=== PATIENT | female | born 1960 | race American Indian/Alaskan Native ===

== ENCOUNTER 2017-12-02 15:02 | Inpatient (IN) | payer MEDICARE, OTHER ==
--- NOTE | 2017-12-02 15:43 | ED PDOC ---
Arrival/HPI - General Chief Complaint: Chest Pain Time Seen by Provider: 12/02/17 15:20 Historian: Patient - History of Present Illness Narrative History of Present Illness (Text): 12/02/17 15:41 Patient is a 57-year-old female with past medical history of high cholesterol and 3 cardiac stents in the past, 2 in 2010 and 1 in 2012, is complaining of intermittent pressure like pain to the center of her chest that occurs mostly during rest and would last several hours to a whole day, associated with shortness of breath with exertion. Patient states that her symptoms have been ongoing for the past week. States that she saw her PMD today Dr. Cevallos who recommended that she come to the hospital to be admitted overnight. Patient admits to a cough as well. Otherwise: (-) chest pain currently, (-) radiation, ( -) diaphoresis, (-) dyspnea, (-) pleuritic component, (-) ripping or tearing quality, (-) positional component, (-) dizziness, (-) syncope, (+) nausea, (-) vomiting, (-) calf swelling/pain, (-) neuro deficits, (-) recent travel/ hospitalizations/surgeries. PMD Mattie Garcia Past Medical History - Infectious Disease Hx of Infectious Diseases: None - Reproductive Menopause: Yes - Cardiac Hx Hypertension: Yes - Pulmonary Hx Asthma: Yes Hx Chronic Obstructive Pulmonary Disease (COPD): Yes - Neurological Hx Paralysis: No - Endocrine/Metabolic Hx Systemic Lupus Erythematosus: Yes - Hematological/Oncological Hx Blood Transfusions: No Hx Blood Transfusion Reaction: No - Musculoskeletal/Rheumatological Hx Musculoskeletal Disorders: Yes (RA;LUPUS; HERNIATED DISCS) - Psychiatric Hx Emotional Abuse: No Hx Physical Abuse: No Hx Substance Use: No - Surgical History Hx Coronary Stent: Yes (2) Hx Hysterectomy: Yes (PARTIAL) - Anesthesia Hx Anesthesia: Yes Hx Anesthesia Reactions: No Hx Malignant Hyperthermia: No - Suicidal Assessment Feels Threatened In Home Enviroment: No Family/Social History Family/Social History: Unknown Family HX Smoking Status: Current Some Days Smoker Hx Alcohol Use: Yes (socially) Frequency of alcohol use: Socially Hx Substance Use: No Allergies/Home Meds Allergies/Adverse Reactions: Allergies amoxicillin Allergy (Intermediate, Verified 12/02/17 15:13) RASH/ITCHING [place] And Derivatives Allergy (Verified 12/02/17 15:13) RASH strawberry Allergy (Verified 12/02/17 15:13) RASH Home Medications: Home Meds Medication Instructions Recorded Confirmed Aspirin [Ecotrin] 81 mg PO QPM 05/22/15 12/02/17 Clopidogrel [Plavix] 75 mg PO QAM 05/22/15 12/02/17 Simvastatin 20 mg PO HS 05/22/15 12/02/17 Albuterol Sulfate [Ventolin Hfa] 2 puff NEB Q6 PRN 12/02/17 12/02/17 Biotin [Biotin] 5,000 mcg PO DAILY 12/02/17 12/02/17 Cholecalciferol [Vitamin D 1000 IU] 1,000 iu PO DAILY 12/02/17 12/02/17 Enalapril Maleate [Vasotec] 20 mg PO DAILY 12/02/17 12/02/17 Hydroxychloroquine Sulfate 200 mg PO DAILY 12/02/17 12/02/17 [Hydroxychloroquine Sulfate] Montelukast [Singulair] 10 mg PO DAILY 12/02/17 12/02/17 Propylene Glycol [Systane Balance] 1 drop OU DAILY 12/02/17 12/02/17 Review of Systems - Review of Systems Constitutional: absent: Fatigue, Weight Change, Fevers Respiratory: SOB (with exertion), Cough. absent: Sputum Cardiovascular: Chest Pain. absent: Palpitations Gastrointestinal: Nausea. absent: Abdominal Pain, Vomiting Musculoskeletal: Back Pain. absent: Arthralgias, Neck Pain Skin: absent: Rash, Pruritis, Skin Lesions Neurological: absent: Headache, Dizziness Physical Exam Vital Signs Temp Pulse Resp BP Pulse Ox 12/02/17 16:20 98 F 75 19 140/70 99 12/02/17 15:10 97.8 F 81 18 128/64 99 Temperature: Afebrile Blood Pressure: Normal Pulse: Regular Respiratory Rate: Normal Appearance: Positive for: Well-Appearing, Non-Toxic, Comfortable Pain Distress: None Mental Status: Positive for: Alert and Oriented X 3 - Systems Exam Head: Present: Atraumatic, Normocephalic Conjunctiva: Present: Normal Mouth: Present: Moist Mucous Membranes Neck: Present: Normal Range of Motion. No: MIDLINE TENDERNESS Respiratory/Chest: Present: Clear to Auscultation, Good Air Exchange. No: Respiratory Distress, Accessory Muscle Use Cardiovascular: Present: Regular Rate and Rhythm, Normal S1, S2. No: Murmurs Abdomen: No: Tenderness, Distention, Peritoneal Signs Back: Present: Normal Inspection Upper Extremity: Present: Normal Inspection, NORMAL PULSES, Neurovascularly Intact. No: Cyanosis, Edema, Temperature Abnormalties Lower Extremity: Present: Normal Inspection, NORMAL PULSES, Neurovascularly Intact. No: Edema, Tenderness, Swelling, Temperature Abnormalties Neurological: Present: GCS=15, CN II-XII Intact, Speech Normal, Motor Func Grossly Intact, Normal Sensory Function Skin: Present: Warm, Dry, Normal Color. No: Rashes Psychiatric: Present: Alert, Oriented x 3, Normal Insight, Normal Concentration Medical Decision Making ED Course and Treatment: 12/02/17 15:38 Previous medical records reviewed : Echocardiogram performed by Dr. Garcia on 10/07/2016 showed mild LVH with good LV function, aortic valve sclerosis without stenosis, mild tricupsid regurgitation , mildly elevated pulmonary pressures. Stress test performed on 10/07/2016 : 1. Normal SPECT myocardial perfusion study 2. Normal gated wall motion of the L ventricle 3. In comparison with the last study anil 10/10/14, there is resolution of previously noted defects. Plan: -- Labs -- IV -- monitoring and evaluation advisor -- EKG -- CXR -- Asa -- Reassess and disposition EKG: NSR at 83 bpm, (-) acute ST changes, as read by [facility]. CXR : NAD, as read by FAREED 16:20 Labs reviewed : trop (-), rest of the labs wnl. On reevaluation, patient reports no chest pain or SOB at this time. On exam, patient remains awake alert and oriented 3 in no acute distress. Diagnostic results d/w the patient. She agrees with plan for further tele obs. VSS. 16:40 Case d/w Dr. Phelps agrees with plan for inpatient obs for tele. Bridge orders placed with consults to Dr. Garcia and Dr. Kulkarni as per request of Dr. Phelps. - Lab Interpretations Lab Results: 12/02/17 15:25 12/02/17 15:25 Lab Results 12/02/17 15:25: Sodium 141, Potassium 4.1, Chloride 108 H, Carbon Dioxide 22, Anion Gap 14, BUN 15, Creatinine 0.9, Est GFR ( Amer) > 60, Est GFR (Non- Af Amer) > 60, Random Glucose 103, Calcium 9.5, Magnesium 2.0, Total Bilirubin 0.4, AST 25, ALT 21, Alkaline Phosphatase 88, Lactate Dehydrogenase 406, Total Creatine Kinase 139, Troponin I < 0.01, Total Protein 7.6, Albumin 4.2, Globulin 3.4, Albumin/Globulin Ratio 1.2 12/02/17 15:25: PT 12.3, INR 1.08, APTT 30.0 12/02/17 15:25: WBC 8.9 D, RBC 4.68, Hgb 13.4, Hct 38.9, MCV 83.1, MCH 28.6, MCHC 34.4, RDW 14.4, Plt Count 282, MPV 9.6, Gran % 61.2, Lymph % (Auto) 29.7, [place] % (Auto) 7.0 H, Eos % (Auto) 2.0, Baso % (Auto) 0.1, Gran # 5.43, Lymph # ( Auto) 2.6, [place] # (Auto) 0.6, Eos # (Auto) 0.2, Baso # (Auto) 0.01 - RAD Interpretation Radiology Orders: 12/02/17 15:21 CHEST PORTABLE [RAD] Stat - Medication Orders Current Medication Orders: Discontinued Medications Aspirin (Aspirin Chewable) 324 mg PO STAT STA Stop: 12/02/17 15:37 Last Admin: 12/02/17 16:15 Dose: 324 mg - 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 Disposition/Present on Arrival - Present on Arrival Any Indicators Present on Arrival: No History of DVT/PE: No History of Uncontrolled Diabetes: No Urinary Catheter: No History of Decub. Ulcer: No History Surgical Site Infection Following: None - Disposition Have Diagnosis and Disposition been Completed?: Yes Diagnosis: Chest pain Disposition: HOSPITALIZED Disposition Time: 16:40 Patient Plan: Observation Condition: STABLE Discharge Instructions (ExitCare): Chest Pain (ED) Forms: [employer] ([place]an)
--- NOTE | 2017-12-02 15:46 | RAD ---
HISTORY: chest pain COMPARISON: Chest x-ray performed 08/20/15 TECHNIQUE: Chest, one view. FINDINGS: Examination limited by habitus. LUNGS: No focal consolidation. Please note that chest x-ray has limited sensitivity for the detection of pulmonary masses. PLEURA: No significant pleural effusion identified. No definite pneumothorax . CARDIOVASCULAR: The cardiomediastinal silhouette appears within normal limits of size. OSSEOUS STRUCTURES: No acute osseous abnormality identified. VISUALIZED UPPER ABDOMEN: Unremarkable. OTHER FINDINGS: None. IMPRESSION: No focal consolidation, significant pleural effusion, or definite pneumothorax identified.
[2017-12-02 16:11] LABS: BASO # 0.01 K/mm3 (0.0-2.0); BASO % 0.1 % (0.0-3.0); EOS # 0.2 (0.0-0.7); GRAN # 5.43 (1.4-6.5); GRAN % 61.2 % (50.0-68.0); HEMOGLOBIN 13.4 g/dL (12.0-16.0); LYMPH # 2.6 (1.2-3.4); LYMPH % 29.7 % (22.0-35.0); MEAN CELL VOLUME 83.1 fl (80.0-105.0); MEAN CORPUSCULAR HEMOGLOBIN 28.6 pg (25.0-35.0); MEAN CORPUSCULAR HGB CONC 34.4 g/dl (31.0-37.0); MEAN PLATELET VOLUME 9.6 fl (7.0-11.0); MONO # 0.6 (0.1-0.6); RBC 4.68 10^6/uL (3.5-6.1); RED CELL DISTRIBUTION WIDTH 14.4 % (11.5-14.5); WHITE BLOOD COUNT 8.9 10^3/ul (4.5-11.0)
[2017-12-02 16:14] LABS: INR 1.08; PROTHROMBIN TIME 12.3 SECONDS (9.4-12.5)
[2017-12-02 16:15] LABS: ALB/GLOB RATIO 1.2 (1.1-1.8); ALBUMIN 4.2 g/dL (3.0-4.8); ALT/SGPT 21 U/L (7-56); AST/SGOT 25 U/L (14-36); BLOOD UREA NITROGEN 15 mg/dL (7-21); CALCIUM 9.5 mg/dL (8.4-10.5); GFR NON-AFRICAN AMERICAN > 60
[2017-12-02 16:26] LABS: TROPONIN I < 0.01 ng/mL
[2017-12-02 19:13] VITALS: BMI 35.2
[2017-12-02] MEDS: diltiaZEM 180 mg/24 Hours CD Cap PO SCH (22:00)
[2017-12-02 22:09] LABS: HDL CHOLESTEROL 52 mg/dL (29-60); IRON 52 ug/dL (45-180)
[2017-12-02 22:18] LABS: % IRON SATURATION 17 % (20-55); TOTAL IRON BINDING CAPACITY 310 ug/dL (265-497)
[2017-12-02 22:20] LABS: LDL CHOLESTEROL 58 mg/dL (0-129)
[2017-12-02 22:21] LABS: TROPONIN I < 0.01 ng/mL
[2017-12-03] MEDS ORDERED: Albuterol-Ipratrop 3 mg / 0.5 (3 ml) UD IH SCH (02:00)
[2017-12-03 07:17] LABS: HEMOGLOBIN 13.3 g/dL (12.0-16.0); MEAN CELL VOLUME 83.6 fl (80.0-105.0); MEAN CORPUSCULAR HGB CONC 33.5 g/dl (31.0-37.0); MEAN PLATELET VOLUME 9.9 fl (7.0-11.0); RBC 4.75 10^6/uL (3.5-6.1); RED CELL DISTRIBUTION WIDTH 14.4 % (11.5-14.5); WHITE BLOOD COUNT 7.7 10^3/ul (4.5-11.0)
[2017-12-03 07:20] LABS: PH,URINE 5.5 (4.7-8.0); URINE BILIRUBIN NEGATIVE (NEGATIVE); URINE BLOOD NEGATIVE (NEGATIVE); URINE GLUCOSE (UA) NEGATIVE (NEGATIVE); URINE LEUKOCYTE ESTERASE NEGATIVE Leu/uL (NEGATIVE); URINE PROTEIN NEGATIVE mg/dL (<30 mg/dL); URINE UROBILINOGEN 0.2 E.U./dL (<1 E.U./dL)
[2017-12-03 07:23] LABS: URINE APPEARANCE CLEAR (CLEAR); URINE COLOR YELLOW (YELLOW)
[2017-12-03 07:24] LABS: BLOOD UREA NITROGEN 12 mg/dL (7-21); CALCIUM 9.5 mg/dL (8.4-10.5); GFR NON-AFRICAN AMERICAN > 60
[2017-12-03] MEDS ORDERED: Levalbuterol 0.63 MG/3 ML Inhal Soln UD IH PRN (08:32)
[2017-12-03] MEDS ORDERED: diltiaZEM 180 mg/24 Hours CD Cap PO SCH (10:00)
[2017-12-03] MEDS: MethylPREDNISolone 40 mg Vial IVP SCH ×2 (14:42→21:14)
[2017-12-03 17:02] LABS: BARBITURATES, UR NEGATIVE (NEGATIVE); BENZODIAZEPINES, UR NEGATIVE (NEGATIVE); OPIATES, UR NEGATIVE (NEGATIVE); PHENCYCLIDINE, UR NEGATIVE (NEGATIVE)
[2017-12-03] MEDS: diltiaZEM 180 mg/24 Hours CD Cap PO SCH (21:10)
--- NOTE | 2017-12-03 23:53 | CON ---
Copied To: Roosevelt Plata MD Attending MD: Roosevelt Plata MD DATE: 12/03/2017 CARDIOLOGY CONSULT REASON FOR CONSULTATION: Chest pain. HISTORY OF PRESENT ILLNESS: The patient is a 57-year-old female who has a history of hypertension, hyperlipidemia, coronary artery disease, status post coronary stenting 3 times in the past, presented because of dull and heavy retrosternal chest pain radiating to the entire scapular area in the back. The patient denies any associated diaphoresis. At the time of my patient's evaluation, the patient was chest pain free. The patient's most recent cardiac catheterization was in 08/2015, which revealed a single vessel CAD with patent stent in the mid LAD and normal ejection fraction. Due to diffuse atherosclerosis and likely vasomotor instability, beta blockers were discontinued and the patient was placed on Cardizem. SOCIAL HISTORY: The patient is a former smoker who quit a few months ago. MEDICATIONS: Cardizem CD 180 mg once a day, aspirin 81 mg once a day, Lipitor 10 mg once a day, Pepcid 40 mg once a day, Plaquenil 200 mg daily, Plavix 75 mg once a day, Solu-Medrol 40 mg intravenously every 8 hours, Xopenex inhaler every 6 hours p.r.n., Zestril 20 mg once a day. REVIEW OF SYSTEMS: No fever or chills. No diaphoresis. No dizziness or syncope. PHYSICAL EXAMINATION: GENERAL: The patient is an elderly female who does not appear to be in any distress. VITAL SIGNS: Blood pressure 106/58, heart rate is 76, temperature 98.5, respirations 20. HEENT: Normocephalic. CHEST: Minimal rhonchi. HEART: S1, S2 regular. ABDOMEN: Soft. EXTREMITIES: No edema. LABORATORY DATA: Today's CBC is entirely within normal limit. Today's SMA-7 is within normal limits except for chloride of 109. Lipid profile is within normal limits. Two sets of troponins are negative. PT/PTT, INR are within normal limits. Yesterday's EKG revealed normal sinus rhythm. ASSESSMENT: 1. Chest pain, myocardial infarction is ruled out. 2. History of coronary stenting. The most recent cardiac catheterization in 2015 revealed patent left anterior descending artery stent with small vessel disease and was placed on Cardizem therapy at that time. 3. Chronic obstructive lung disease. RECOMMENDATIONS: Continue Cardizem CD at 180 mg once a day, aspirin 81 mg once a day, Lipitor 10 mg once a day, Plaquenil 200 daily, Plavix 75 mg once a day, Solu-Medrol 40 mg intravenously every 8 hours and Zestril 20 mg once a day. The patient's most recent echocardiographic study from 10/2016 revealed mild LVH with good systolic function, aortic valve sclerosis without stenosis with mildly elevated pulmonary hypertension. Obtain serum D-dimer as well as urine toxicology screen. From the Chest x-ray, there is no evidence suggestive of aortic aneurysm and the clinical scenario does not favor aortic dissection in view of the patient's reported radiation of chest pain to the back. If the D-dimer is elevated, I will proceed with chest CT angio. Roosevelt Plata MD
--- NOTE | 2017-12-04 01:32 | CON ---
Copied To: Kevin Kulkarni MD Attending MD: Kevin Kulkarni MD DATE: 12/03/2017 PULMONARY CONSULT REFERRING PHYSICIAN: Vijaya Cevallos MD. REASON FOR CONSULT: Cough, shortness of breath, history of chronic obstructive lung disease, sleep apnea syndrome. HISTORY OF PRESENT ILLNESS: This is a 57-year-old female with known history of chronic obstructive lung disease, obstructive sleep apnea syndrome, hyperlipidemia, coronary artery disease, history of coronary stent, comes in with intermittent chest pain, shortness of breath, some cough. She is active smoker. Denies any nausea. No vomiting. No diarrhea. No leg pain or leg swelling. PAST MEDICAL HISTORY: Chronic obstructive lung disease, obstructive sleep apnea syndrome, coronary artery disease, history of coronary stent, hyperlipidemia, hypertension, also carried diagnosis of connective tissue disease, rheumatoid arthritis, also lupus, history of herniated disk. FAMILY HISTORY: No significant cardiopulmonary disease reported. SOCIAL HISTORY: Current smoker. Denies any alcohol use. ALLERGIES: TO AMOXICILLIN, DEVELOPED RASH; CITRUS FRUIT; . MEDICATIONS: She is on combination inhaler twice a day, Biotin 5000 mcg daily, Cardizem 180 mg daily, Ecotrin 81 mg daily, Lipitor 10 mg daily, Pepcid 40 mg at bedtime, Plaquenil 200 mg daily, Plavix 75 mg daily, Solu-Medrol 40 mg every 8 hours, Xopenex inhaled every 6 hours p.r.n., Zestril 20 mg daily. REVIEW OF SYSTEMS: No headache. No rhinitis. Admits to have loud snoring, daytime sleepy and tired. On and off mild chest discomfort, short of breath with exertion. No nausea, vomiting, diarrhea, leg pain, leg swelling. PHYSICAL EXAMINATION: GENERAL: Sitting up in a chair. No acute distress. VITAL SIGNS: Temp is 98, heart rate 64, respiratory rate is 20, blood pressure 118/68, pulse ox 96% on room air. HEENT: Moist mucous membrane. Crowded airway. Mallampati score is 4. NECK: Supple. No JVD. LUNGS: Have bilateral mid lung field some crackles. HEART: S1 and S2. ABDOMEN: Soft, nontender. No organomegaly. EXTREMITIES: There is no edema. NEUROLOGICAL: Awake, alert. Follows simple commands. LABORATORY DATA: Shows hemoglobin 13.3, hematocrit 39.7, WBC 7.7, platelet count is 278. INR 1.08, PTT 30. D-dimer less than 200. Sodium 143, potassium 4.3, chloride 109, bicarbonate 25, BUN 12, creatinine 0.8, glucose 100, calcium is 9.5. TSH 3.01. Cholesterol 143. Had echocardiogram done last year, which showed right ventricular systolic pressure is 35, mild LVH with good LV function. IMPRESSION AND PLAN: Chronic obstructive lung disease, coronary artery disease, history of coronary stent, mild diastolic dysfunction, hypertension, hyperlipidemia, coronary artery disease, history of coronary stent, has a lupus. Agree with the present treatment. Continue steroids. May add Zithromax 500 mg daily, gastric prophylaxis. Continue hydroxychloroquine for now. We will get CT of the chest to rule out interstitial lung disease. We will suggest getting PFT as outpatient to assess the effusion. Cardiology followup. Continue CPAP while sleeping. Thank you and we will follow with you. Kevni Kulkarni MD
[2017-12-04] MEDS: MethylPREDNISolone 40 mg Vial IVP SCH ×3 (05:15→21:46)
--- NOTE | 2017-12-04 05:36 | CARD ---
APPROVED REPORT Date of service: 12/02/2017 EKG Measurement Heart [id number] <Conclusion> Normal sinus rhythm Normal ECG
[2017-12-04] MEDS: BIOTIN 5000 MCG PO SCH (10:06)
--- NOTE | 2017-12-04 15:12 | PN ---
Copied To: Roosevelt Plata MD Attending MD: Roosevelt Plata MD DATE: 12/04/2017 SUBJECTIVE: The patient denies any chest pain or back pain. PHYSICAL EXAMINATION: VITAL SIGNS: Blood pressure 114/69; heart rate 70; temperature 98.7, earlier temperature was 99.9; respirations 18. HEENT: Normocephalic. CHEST: Clear. HEART: S1, S2 regular. EXTREMITIES: No edema. DATA: The D-dimer and urine drug screen were negative. Chest CT scan was performed; however, the report is still pending. ASSESSMENT: 1. Chest pain, myocardial infarction is ruled out. 2. History of coronary artery disease with history of coronary artery stenting in the past. Most recent cardiac catheterization in 2015 with a patent left anterior descending stent with a small vessel disease. 3. Chronic obstructive lung disease. RECOMMENDATIONS: Continue Cardizem CD at 180 mg once a day, aspirin 81 mg once a day, Lipitor 10 mg once a day, Plavix 75 mg once day, Solu-Medrol 40 mg intravenous every 8 hours, Zestril 20 mg once a day. I will follow chest CT scan report. From the cardiac point of view, the patient can be discharged and will follow up with Dr. Stewart Garcia as an outpatient. Roosevelt Plata MD
--- NOTE | 2017-12-04 18:55 | PN ---
Copied To: Kevin Kulkarni MD Attending MD: Kevin Kulkarni MD DATE: 12/04/2017 PULMONARY PROGRESS NOTE REFERRING PHYSICIAN: Vijaya Cevallos MD SUBJECTIVE: The patient is sitting side of the bed. Night was unremarkable. Feels better. No chest pain. No nausea. No diarrhea. No leg pain or leg swelling. PHYSICAL EXAMINATION: GENERAL: In no acute distress. VITAL SIGNS: Temperature is 98, heart rate is 73, respiratory rate is 18, blood pressure 115/76, pulse ox of 95% on room air. HEENT: Moist mucous membrane. Crowded airway. Mallampati score is 4. NECK: Supple. No JVD. LUNGS: Have a fair airflow today. HEART: S1 and S2. ABDOMEN: Soft, nontender. No organomegaly. EXTREMITIES: No edema. NEUROLOGICAL: Awake and alert. Follows simple command. MEDICATIONS: He is on Biotin 500 mcg daily, Benadryl 25 mg at bedtime p.r.n., diltiazem 180 mg daily, Ecotrin 81 mg daily, Lipitor 10 mg daily, Pepcid 40 mg at bedtime, Plaquenil 200 mg daily, Plavix 75 mg daily, Solu-Medrol 30 mg every 8 hours, Xopenex inhale every 8 hours, Zestril 20 mg daily. LABORATORY DATA: Shows no new lab is available since yesterday. Has a CT of the chest done, report is still pending. IMPRESSION AND PLAN: Chronic obstructive lung disease, coronary artery disease, history of coronary stent, mild diastolic dysfunction, hypertension, hyperlipidemia, history of lupus, on Plaquenil. Pulmonary point of view, doing okay. Continue IV and inhaled bronchodilator. Follow up CT report, outpatient PFT. Sleep apnea precaution, encourage CPAP use. Thank you and we will follow with you. Kevin Kulkarni MD
--- NOTE | 2017-12-04 21:06 | CT ---
Date of service: 12/03/2017 PROCEDURE: CT Chest without contrast HISTORY: interstial lung disease COMPARISON: None available. TECHNIQUE: Contiguous axial images were obtained through the chest without intravenous contrast enhancement. Sagittal and coronal reconstructions were performed. Radiation dose (DLP): 825.72 mGy-cm. This CT exam was performed using one or more of the following dose reduction techniques: Automated exposure control, adjustment of the mA and/or kV according to patient size, and/or use of iterative reconstruction technique. FINDINGS: LUNGS: There are patchy mild ground-glass opacities noted in the lungs more prominent at the mid and lower portions. Findings are nonspecific and the differential consideration includes small vessels or small airway disease. The possibility of volume overload or pulmonary congestion is not totally excluded. There are 2 adjacent thin wall cystic formation noted at the superior segment of the right lung lower lobe. There is also thin wall cystic formation at the inferior segment of the right lung upper lobe. No evidence of significant interstitial septal thickening or lung fibrosis. There is a 6 millimeter right lung upper lobe nodule image 57 series 3. MEDIASTINUM: Unremarkable thoracic aorta. No aneurysm. Normal sized heart. Main pulmonary artery unremarkable. No vascular congestion. No lymphadenopathy. PLEURA: No pleural fluid. No pneumothorax. BONES: No fracture. No destructive lesion. UPPER ABDOMEN: Grossly unremarkable. OTHER FINDINGS: None. IMPRESSION: 6 millimeter noncalcified nodule at the right lung upper lobe. Six-month follow-up reassessment is recommended. Patchy ground-glass opacities and mosaic attenuation of the lungs noted more prominent at the lower lobes. Findings are nonspecific and the differential considerations include small airway disease, small vessels disease or less likely pulmonary congestion. Three thin wall cystic formation noted at the superior segment of the right lung lower lobe and inferior segment of the right upper lobe. Otherwise, no evidence of interstitial septal thickening or lung fibrosis. Preliminary report was submitted by [facility].
[2017-12-04] MEDS: diltiaZEM 180 mg/24 Hours CD Cap PO SCH (21:45)
--- NOTE | 2017-12-05 00:37 | PN ---
Copied To: Vijaya Cevallos MD Attending MD: Vijaya Cevallos MD DATE: 12/04/2017 SUBJECTIVE: The patient is a 57-year-old female. The patient was seen and examined on the bedside. Looking comfortable. Cough is better. Chest pain is better. No hematuria or hematochezia. No diarrhea. No swelling of the legs. No headache. No dizziness. PHYSICAL EXAMINATION: VITAL SIGNS: Temperature 98, heart rate 76, respiratory rate 18, blood pressure 115/76, pulse oximetry 95% on room air. HEENT: Head: Normocephalic, atraumatic. Eyes: PERRLA. Extraocular muscles are intact. Conjunctivae clear. Nose patent. Mucous membranes moist. NECK: Supple. No carotid bruit. No JVD or thyromegaly. CHEST: Bilaterally symmetrical. HEART: S1 and S2 positive. LUNGS: Clear to auscultation. ABDOMEN: Soft. Bowel sounds present. No organomegaly. EXTREMITIES: No edema. No cyanosis. NEUROLOGIC: The patient is awake and alert. Moving all 4 extremities. No focal deficits. MEDICATIONS: Biotin, Benadryl, diltiazem, Ecotrin, Lipitor, Pepcid, Plaquenil, Plavix, Solu-Medrol, Xopenex, Zestril. LABORATORY DATA: We do not have recent lab today, but I reviewed old labs. ASSESSMENT AND PLAN: Ms. Maxx Baer is a 57-year-old lady with history of chronic obstructive lung disease, asthma, coronary artery disease, status post cardiac stenting multiple times, mild diastolic dysfunction, hypertension, hypercholesterolemia, history of lupus, rheumatoid arthritis, on Plaquenil by the clinical transformation specialist. Pulmonary and Cardiology is on the case. Continue intravenous and inhaled bronchodilator. Followup CAT scan of the chest if not had yet. According to Dr. Kulkarni, patient need outpatient pulmonary function test and sleep study. Getting the tapering dose of Solu-Medrol. We will follow up. Repeat labs. Vijaya Cevallos MD
[2017-12-05] MEDS: MethylPREDNISolone 40 mg Vial IVP SCH ×2 (05:43→15:02)
[2017-12-05 06:10] VITALS: O2SAT 100
--- NOTE | 2017-12-05 09:04 | HP ---
date 12/03/17 Copied To: Vijaya Cevallos MD Attending MD: Vijaya Cevallos MD CHIEF COMPLAINT: Shortness of breath, chest tightness. HISTORY OF PRESENT ILLNESS: Ms. Baer is a 57-year-old female, my private patient, who actually came in my office yesterday for her chest tightness, shortness of breath, history of hypercholesterolemia, three cardiac stents in the past, two in 2010 and one in 2012, is complaining of intermittent pressure and light pain to the center of her chest, mostly during the rest and were like several hours to the whole day, associated sometimes with coughing, shortness of breath. Actually, according to her, she is getting asthma attack. She is using nebulizer. Also she is getting palpitation and she is not getting relieved, is staying all around. Because of the patient's bad cardiac history, I sent her to [facility] emergency room, admitted by the Cardiology and Pulmonary care service, started on Solu-Medrol. PAST MEDICAL HISTORY: As above, hypertension, asthma, COPD, lupus, herniated disc, rheumatoid arthritis, coronary stenting, partial hysterectomy. FAMILY HISTORY: Father and mother, noncontributory. HABITS: Currently someday's smoker. Alcohol socially. Substance abuse, no. ALLERGIES: THE PATIENT IS ALLERGIC WITH AMOXICILLIN, [place] FRUIT AND DERIVATIVES OF [place], STRAWBERRIES. HOME MEDICATIONS: Aspirin, Plavix, simvastatin, albuterol, biotin, vitamin D, Vasotec, hydroxychloroquine, Singulair. REVIEW OF SYSTEMS: The patient is seen and examined on the bedside, looking comfortable. No nausea, vomiting, or diarrhea. No hematuria or hematochezia. Still having chest pain and shortness of breath on exertion. Sometimes palpitation. PHYSICAL EXAMINATION: VITAL SIGNS: Temperature 98.5, pulse 76, blood pressure 106/58, respiratory rate 20. HEENT: Head normocephalic, atraumatic. Eyes PERRLA. Extraocular muscles intact. Conjunctivae clear. Nose patent. Mucous membrane moist. NECK: Supple. No carotid bruit. No JVD or thyromegaly. CHEST: Bilaterally symmetrical. HEART: S1 and S2 positive. LUNGS: Clear to auscultation. ABDOMEN: Soft. Bowel sounds positive. No organomegaly. EXTREMITIES: No edema. No cyanosis. NEUROLOGICAL: The patient is awake and alert. Moving all 4 extremities. No focal deficits. LABORATORY DATA: White blood cells 7.7, hemoglobin 13.3, hematocrit 39.7, platelets 279. Sodium 143, potassium 4.3, BUN 12, creatinine 0.9. Glucose 100. Iron saturation 17. Vitamin B12 and folate are pending. ASSESSMENT AND PLAN: Ms. Baer is a 57-year-old my private patient, has iron deficiency; chest x-ray and electrocardiogram done, noted by me; has history of hypercholesterolemia; three cardiac stents in the past, two in 2010 and one in 2012; history of asthma; chronic obstructive pulmonary disease; now came with chest tightness exacerbation; coughing; chest pain, especially with coughing; history of hypertension, taking her blood pressure medications; history of lupus and rheumatoid arthritis; history of herniated disc in the neck and back 20 years ago; partial hysterectomy. I admitted the patient, put on Solu-Medrol. Pulmonary and Cardiology consult called. The patient is getting admitted in telemetry. Gastrointestinal and deep vein thrombosis prophylaxes. Repeat labs. We will follow up. Vijaya Cevallos MD MTDD
[2017-12-05] MEDS: BIOTIN 5000 MCG PO SCH (10:32)
[2017-12-05 11:47] VITALS: BP 133/74; RESP 18; TEMP 98.8
--- NOTE | 2017-12-05 15:41 | PN ---
Copied To: Stewart Garcia MD Attending MD: Stewart Garcia MD DATE: 12/05/2017 CARDIOLOGY FOLLOWUP SUBJECTIVE: The patient is chest pain free. Her symptoms are more associated with her breathing issues and were worse on inspiration during her asthmatic attack. Currently, the patient is chest pain free. PHYSICAL EXAMINATION VITAL SIGNS: Blood pressure is 133/74, the heart rate is in the 70s. NECK: Negative JVD. LUNGS: Without rales. HEART: Reveals S1, S2. EXTREMITIES: Without edema. LABORATORY DATA: BUN and creatinine are unremarkable. Troponins are negative x2. EKG is unremarkable. IMPRESSION: 1. Atypical chest pain. 2. No evidence for acute coronary syndrome. 3. History of percutaneous transluminal coronary angioplasty and stent in the past. 4. Asthma. 5. Hypercholesterolemia. 6. Hypertension. PLAN: Given these findings, from a cardiac perspective, the patient can be discharged. Once her asthma is better, we will arrange for an outpatient stress test to rule out significant coronary artery disease. Stewart Garcia MD
[2017-12-05 17:27] VITALS: PULSE 72
--- NOTE | 2017-12-05 23:04 | PN ---
Copied To: Kevin Kulkarni MD Attending MD: Kevin Kulkarni MD DATE: 12/05/2017 PULMONARY PROGRESS NOTE REFERRING PHYSICIAN: Vijaya Cevallos MD SUBJECTIVE: She is out of bed to chair. Night was unremarkable. Feels okay. Still has some cough and short of breath. No chest pain. No nausea. No diarrhea, leg pain or leg swelling. OBJECTIVE GENERAL: In no acute distress. VITAL SIGNS: Temperature is 98, heart rate 73, respiratory rate is 18, blood pressure 133/77, pulse ox 99% on room air. HEENT: Moist mucous membrane. Crowded airway. Mallampati score is 4. NECK: Supple. No JVD. LUNGS: Have a few crackles. HEART: S1 and S2. ABDOMEN: Soft, nontender. No organomegaly. EXTREMITIES: No edema. NEUROLOGIC: Awake and alert. Follows simple command. MEDICATIONS: She is on Benadryl p.r.n. basis, Cardizem CD 180 mg daily, Ecotrin 81 mg daily, iron supplement daily, Lipitor 10 mg daily, Pepcid 40 mg daily, Plaquenil 200 mg daily, Plavix 75 mg daily, prednisone taper dose, Xopenex inhaled every 6 hour, Zestril 20 mg daily. LABORATORY DATA: Shows no new lab is available since yesterday. Has a CAT scan of the chest done which shows 6 mm noncalcified nodule in the right lung upper lobe. Also, have a patchy ground-glass opacity and mosaic attenuation in the lung noted more prominent in the lower lobe. IMPRESSION AND PLAN: Chronic obstructive lung disease, lung nodule which is new finding, coronary artery disease, history of coronary stent, mild diastolic dysfunction, hypertension, hyperlipidemia, history of lupus on Plaquenil. Pulmonary point of view, doing okay, could be discharged home on tapered dose of steroids. I have long discussion with the patient about lung findings. Urged her to stop smoking and also talk about lung nodule. Need followup CAT scan in couple of months. The patient expressed understanding. Will follow up with me as outpatient. Get a pulmonary function test and attended sleep study. Also, follow with Dr. Cevallos and Cardiology. Urged her to lose weight. Thank you and we will follow with you. Kevin Kulkarni MD Psychiatric # [id number]
--- NOTE | 2017-12-07 05:09 | DS ---
Copied To: Vijaya Cevallos MD Attending MD: Vijaya Cevallos MD CHIEF COMPLAINT: Shortness of breath, chest tightness. HISTORY OF PRESENT ILLNESS: Ms. Maxx Baer is a 57-year-old my private patient who came in my office for her chest tightness, shortness of breath, history of hypercholesterolemia, coronary artery disease, three cardiac stents in the past, came with intermittent chest pressure like pain to the center of her chest, mostly during the rest and was likely several hours to the whole day, associated with some coughing and shortness of breath, and the patient got used pumps and outpatient treatment failed, came in my office, I sent her to [facility]. We admitted the patient, gave Solu-Medrol. CAT scan of the chest was done, seen by financial counselor, Dr. Stewart Garcia and steel worker, Dr. Kulkarni, used bronchodilators, improved. The patient has 6 mm noncalcified nodule in the right lung, upper lobe. Six-month followup reassessment is recommended. Patchy ground-glass appearance, mosaic attenuation of the lung noted more prominent in the lower lobes. Findings are nonspecific and the differential consideration include small vessel disease or less likely pulmonary congestion. formulation noted in the superior segmental of the right lung lower lobe, inferior segment of the right lower lobe. No evidence of interstitial septal thickening or lung fibrosis. The patient was treated by the financial counselor, discharged home, followed up with steel worker, financial counselor and primary care physician. Meds provided at the bedside. PAST MEDICAL HISTORY: Hypertension, asthma, COPD, lupus, herniated disk, rheumatoid arthritis, coronary artery disease with cardiac stenting, partial hysterectomy. FAMILY HISTORY: Father and mother, noncontributory. HABITS: Currently, some days smoker. Alcohol socially. Substance abuse, no. ALLERGIES: THE PATIENT IS ALLERGIC WITH AMOXICILLIN, [place] FR[employer] AND DERIVATIVES OF [place], STRAWBERRIES. HOME MEDICATIONS: Reviewed by me. REVIEW OF SYSTEMS: The patient was seen and examined on the bedside on 12/05/2017, looking comfortable. No nausea, vomiting, or diarrhea. No hematuria or hematochezia. No swelling of the legs. Chest pain is better. Shortness of breath is better. Coughing is better. No swelling of the legs. No fever, no chills. PHYSICAL EXAMINATION: VITAL SIGNS: Temperature 98, heart rate 73, respiratory rate 18, blood pressure 133/77, pulse oximetry 99% on room air. HEENT: Head normocephalic, atraumatic. Eyes, PERRLA. Extraocular muscles intact. Conjunctivae clear. Nose patent. Mucous membrane moist. NECK: Supple. No carotid bruit. No JVD or thyromegaly. CHEST: Bilaterally symmetrical. HEART: S1 and S2 positive. LUNGS: Clear to auscultation. ABDOMEN: Soft. Bowel sounds positive. No organomegaly. EXTREMITIES: No edema. No cyanosis. NEUROLOGICAL: The patient is awake and alert. Moving all 4 extremities. No focal deficits. MEDICATIONS: Benadryl, Cardizem, Ecotrin, iron supplement, Lipitor, Pepcid, Plaquenil, Plavix, prednisone tapering doses, Xopenex, Restoril. LABORATORY DATA: We do not have recent labs today, but I reviewed old labs. I reviewed CAT scan of the chest. ASSESSMENT AND PLAN: Ms. Maxx Baer is a 57-year-old female with chronic obstructive lung disease, came with exacerbation of chronic obstructive pulmonary disease, has lung nodules which is new finding, coronary artery disease, status post cardiac stenting, mild diastolic dysfunction, hypertension, hypercholesterolemia, history of lupus and rheumatoid arthritis, on Plaquenil. [employer] Specialist and steel worker cleared the patient, on tapering dose of steroid. Dr. Kulkarni had a long discussion with the patient about lung finding, urgent, how to stop smoking and also talk about lung nodules, to have his own steel worker, need followup CAT scan in the couple of months. The patient expressed understanding. She need outpatient pulmonary function test and sleep study, rule out obstructive sleep apnea syndrome. Urged to lose weight, urged to quit smoking. Education done by me and Dr. Kulkarni. According to Dr. Stewart Garcia, chest pain is like atypical. No evidence for acute coronary syndrome this time. Dr. Stweart Garcia will arrange stress test as outpatient to rule out significant coronary artery disease. We will follow up. Vijaya Cevallos MD
--- NOTE | 2017-12-08 13:39 | PQF ---
PROVIDER RESPONSE TEXT: Acute exacerbation of copd REVIEWER QUERY TEXT: COPD Specificity COPD - Chronic Obstructive Pulmonary Disease is documented in the Medical Record. Please specify the associated condition (includes suspected or probable) Such as: -- Bronchitis - acute -- Asthmatic - with /without status asthmaticus -- Exacerbation - acute -- Lower respiratory infection - acute -- Other, please specify The patient's Clinical Indicators include: Query created by: Luz Maria Cardoza on 12/05/2017 1:43 PM Electronically signed by: Kevin Kulkarni MD 12/08/2017 1:37 PM
== END 2017-12-05 18:45 | disposition home or self-care (01) | DRG 192 ==
LOC: ED 15:02 → ERH 16:44 → 2RNO 18:23 → OBSVTOIN 12-03 10:06
PROVIDERS: ADMIT Internal Medicine; ATTEND Internal Medicine
PROC: 5A09457 Assistance with Respiratory Ventilation, 24-96 Consecutive Hours, Continuous Positive Airway Pressure (ICD-10-PCS; principal; 2017-12-02)
PROC: 3E0F7GC Introduction of Other Therapeutic Substance into Respiratory Tract, Via Natural or Artificial Opening (ICD-10-PCS; 2017-12-03)
DX: J44.1 Chronic obstructive pulmonary disease with (acute) exacerbation (principal); R07.89 Other chest pain; E78.00 Pure hypercholesterolemia, unspecified; M32.9 Systemic lupus erythematosus, unspecified; M06.9 Rheumatoid arthritis, unspecified; I10 Essential (primary) hypertension; I25.10 Atherosclerotic heart disease of native coronary artery without angina pectoris; E78.5 Hyperlipidemia, unspecified; G47.33 Obstructive sleep apnea (adult) (pediatric); R91.1 Solitary pulmonary nodule; F17.200 Nicotine dependence, unspecified, uncomplicated; Z79.02 Long term (current) use of antithrombotics/antiplatelets; Z95.5 Presence of coronary angioplasty implant and graft